=== PATIENT | male | born 1990 | race African-American/Black ===

== ENCOUNTER 2022-02-03 16:30 | Emergency (ER) | payer OTHER ==
[~2022-02-03] VITALS: Ht 185.4 cm; Wt 111.0 kg
[2022-02-03] MEDS ORDERED: KETOROLAC 30MG/ML VIAL IV STA (18:08)
[2022-02-03] MEDS ORDERED: SODIUM CHLORIDE 0.9% 1,000 ML IV ONE (18:15)
[2022-02-03 19:42] LABS: HEMATOCRIT. 44.1 % (42.0-52.0); MEAN CORPUSCULAR HEMOGLOBIN 23.4 pg (28.0-32.0); MEAN CORPUSCULAR VOLUME 73.9 fL (80.0-94.0); MEAN PLATELET VOLUME 7.7 fl (7.4-10.4); PLATELET 253 x1000/uL (130-400); RED BLOOD CELL COUNT 5.98 mill/uL (4.7-6.1); RED CELL DISTRIBUTION WIDTH 14.8 % (11.6-14.6)
[2022-02-03 19:47] VITALS: BP 105/65
[2022-02-03 20:03] LABS: CLARITY URINE CLEAR (CLEAR); COLOR URINE YELLOW (YELLOW); KETONES URINE TRACE (NEGATIVE); LEUKOCYTE ESTERASE URINE NEGATIVE (NEGATIVE); NITRITE URINE NEGATIVE (NEGATIVE); OCCULT BLOOD URINE NEGATIVE (NEGATIVE); PH URINE 5.5 (4.5-8.0); PROTEIN URINE NEGATIVE (NEGATIVE); UROBILINOGEN URINE 0.2 E.U./dL (0.2-1.0)
[2022-02-03 20:05] LABS: CHLORIDE 108 mEq/L (98-107)
[2022-02-03 23:25] LABS: PLATELET ESTIMATE NORMAL
== END 2022-02-03 20:49 | disposition home or self-care (01) ==
LOC: ER 16:30
DX: R10.9 Unspecified abdominal pain (principal); R11.2 Nausea with vomiting, unspecified; R19.7 Diarrhea, unspecified
CPT/HCPCS: 36415; 74176; 80053; 81003; 83690; 85025; 93005; 96361; 96374; 99285; J1885; J7030

== ENCOUNTER 2022-04-11 10:27 | Emergency (ER) | payer OTHER ==
[~2022-04-11] VITALS: Ht 185.4 cm; Wt 111.0 kg
[2022-04-11 10:43] VITALS: BP 144/88
[2022-04-11] MEDS ORDERED: MAGNESIUM/ALUMINUM HYDROXIDE/SIMETHICONE 30ML UDC PO ONE (11:15)
[2022-04-11 11:52] LABS: CLARITY URINE CLEAR (CLEAR); COLOR URINE YELLOW (YELLOW); KETONES URINE TRACE (NEGATIVE); LEUKOCYTE ESTERASE URINE NEGATIVE (NEGATIVE); NITRITE URINE NEGATIVE (NEGATIVE); OCCULT BLOOD URINE NEGATIVE (NEGATIVE); PROTEIN URINE TRACE (NEGATIVE); SPECIFIC GRAVITY URINE 1.029 (1.005-1.030); UROBILINOGEN URINE 0.2 E.U./dL (0.2-1.0)
[2022-04-11 12:41] LABS: BASOPHILS % 0.4 % (0.0-2.0); EOSINOPHILS % 1.2 % (0.0-5.0); HEMATOCRIT. 42.7 % (42.0-52.0); HEMOGLOBIN. 13.5 g/dL (14.0-18.0); LYMPHOCYTES % 21.9 % (20.0-50.0); MEAN CORPUSCULAR HEMOGLOBIN 23.8 pg (28.0-32.0); MEAN PLATELET VOLUME 8.1 fl (7.4-10.4); MONOCYTES % 9.8 % (2.0-8.0); NEUTROPHILS % 66.7 % (40.0-76.0); PLATELET 258 x1000/uL (130-400); RED BLOOD CELL COUNT 5.69 mill/uL (4.7-6.1); RED CELL DISTRIBUTION WIDTH 15.1 % (11.6-14.6)
[2022-04-11 13:01] LABS: CHLORIDE 108 mEq/L (98-107)
[2022-04-11] MEDS ORDERED: BACI28.32 TP (14:12)
== END 2022-04-11 14:13 | disposition home or self-care (01) ==
LOC: ER 10:27
DX: R10.9 Unspecified abdominal pain (principal); R19.7 Diarrhea, unspecified
CPT/HCPCS: 36415; 74018; 80053; 81003; 85025; 99284

== ENCOUNTER 2022-11-05 10:04 | Emergency (ER) | payer OTHER ==
[~2022-11-05] VITALS: Ht 185.4 cm; Wt 102.0 kg
[~2022-11-05 10:04] MED LIST: BACI28.32 TP
[2022-11-05 10:16] VITALS: BP 146/84
[2022-11-05] MEDS ORDERED: DEXAMETHASONE 10 MG/ML VIAL IV ONE (11:30)
== END 2022-11-05 12:05 | disposition home or self-care (01) ==
LOC: ER 10:14
DX: J02.9 Acute pharyngitis, unspecified (principal)
CPT/HCPCS: 96374; 99283; J1100